=== PATIENT | female | born 1975 | race Caucasian/White ===

== ENCOUNTER 2019-12-26 07:25 | Day surgery (SDC) | payer OTHER ==
[~2019-12-26] VITALS: Ht 157.5 cm; Wt 52.7 kg
[2019-12-26] MEDS ORDERED: SYNTHROID0.075 MG/T PO (07:54)
[2019-12-26] MEDS ORDERED: ATIVAN 1MG T1 MG/TAB PO (07:54)
[2019-12-26] MEDS ORDERED: IRON TABLETS325 MG PO (07:54)
[2019-12-26 08:29] VITALS: BP 112/86; PULSE 110; TEMP 98
[2019-12-26 10:10] VITALS: BP 122/69; PULSE 75; TEMP 97.8
--- NOTE | 2019-12-26 10:10 | NUR ---
Patient arrives to [facility] via cart, accompanied by [facility] RN Lexii. Bedside report received. Patient is drowsy, but oriented. She ambulates with standby assist to the chair in the room. Monitoring is applied - VSS and WNL on room air. Her spouse is at the bedside. She denies pain or nausea. She is offered and receives coffee and applesauce to eat (REGULAR diet order per Dr. Hastings). Call light in reach.
[2019-12-26 10:25] VITALS: BP 129/84; PULSE 78
[2019-12-26 10:32] VITALS: TEMP 97.8
[2019-12-26 10:40] VITALS: BP 128/77; PULSE 71
--- NOTE | 2019-12-26 10:45 | NUR ---
Dr. Hastings at the bedside at this time.
--- NOTE | 2019-12-26 11:03 | NUR ---
Patient has met discharge criteria. Discharge instructions discussed, denies any questions, and verbalizes understanding. Escorted to the exit via wheelchair by staff. Discharged to home with ride in private vehicle at 1103.
== END 2019-12-26 11:03 | disposition home or self-care (01) ==
LOC: SDCO 07:25
DX: D12.2 Benign neoplasm of ascending colon (principal); R19.7 Diarrhea, unspecified; K29.50 Unspecified chronic gastritis without bleeding; K63.89 Other specified diseases of intestine; K25.7 Chronic gastric ulcer without hemorrhage or perforation; D64.9 Anemia, unspecified; F17.210 Nicotine dependence, cigarettes, uncomplicated; G89.29 Other chronic pain; F41.9 Anxiety disorder, unspecified; E03.9 Hypothyroidism, unspecified; Z80.0 Family history of malignant neoplasm of digestive organs; Z88.1 Allergy status to other antibiotic agents; Z88.0 Allergy status to penicillin; Z83.71 Family history of colonic polyps
CPT/HCPCS: J2405; J2704; J3010; J7030